=== PATIENT | female | born 1960 | race Caucasian/White ===

== ENCOUNTER 2024-12-23 16:43 | Emergency (ER) | payer BC ==
[~2024-12-23] VITALS: Ht 175.3 cm; Wt 81.6 kg
[2024-12-23] MEDS ORDERED: ONDANSETRON HCL/PF 4 MG/2 ML VIAL ONE (17:13)
[2024-12-23] MEDS: ONDANSETRON HCL/PF 4 MG/2 ML VIAL IV ONE (17:33)
[2024-12-23 17:40] LABS: PLATELET COUNT (AUTO) 328 K/uL (150-450); RED BLOOD CELL COUNT(AUTO) 4.46 MIL/uL (4.0-5.2); RED CELL DISTRIBUTION WIDTH 13.2 % (11.5-15.0); WHITE BLOOD COUNT (AUTO) 6.8 K/uL (4.3-11.0)
[2024-12-23 17:45] LABS: APPEARANCE,URINE CLEAR (CLEAR); BLOOD, URINE NEGATIVE Ery/uL (NEGATIVE); LEUKOCYTE ESTERASE ,URINE 1+ (NEGATIVE); NITRITE, URINE POSITIVE (NEGATIVE); UGLUCOSE NEGATIVE (NEGATIVE)
[2024-12-23] MEDS ORDERED: MAG HYDROX/AL HYDROX/SIMETH 30 ML UDC ONE (17:46)
[2024-12-23] MEDS ORDERED: FAMOTIDINE/PF INJ 20 MG/2 ML VIAL IV ONE (17:46)
[2024-12-23] MEDS: FAMOTIDINE/PF INJ 20 MG/2 ML VIAL IV ONE (17:49)
[2024-12-23] MEDS: IV NS 0.9% 1,000 ML BAG IV ONE (17:49)
[2024-12-23] MEDS: MAG HYDROX/AL HYDROX/SIMETH 30 ML UDC PO ONE (17:50)
[2024-12-23 17:53] LABS: CALCIUM, SERUM 9.8 mg/dL (8.5-10.1); CREATININE 0.8 mg/dL (0.6-1.3); INR 0.97 (0.91-1.10); SODIUM SERUM 142 mmol/L (136-145); UREA NITROGEN, BLOOD 20 mg/dL (7-18)
[2024-12-23 17:56] LABS: SQUAMOUS EPITHELIAL CELL,UR Moderate /HPF (None Seen)
[2024-12-23 17:58] LABS: ASPARTATE AMINOTRANSFERASE 28 U/L (15-37); TOTAL PROTEIN, SERUM 8.2 g/dL (6.4-8.2)
[2024-12-23 17:58] LABS: ADD URINE CULTURE YES
[2024-12-23] MEDS ORDERED: IOHEXOL-350 100 ML VIAL IV ONE (18:03)
[2024-12-23] MEDS ORDERED: IV NS 0.9% 250 ML IV ONE (18:03)
[2024-12-23 18:09] LABS: OCCULT BLOOD STOOL NEGATIVE (NEGATIVE)
[2024-12-23] MEDS ORDERED: ONDA4TAB5 PO (19:39)
[2024-12-23] MEDS ORDERED: SUCR1TAB PO (19:39)
[2024-12-23 19:47] VITALS: BP 122/64; TEMP 98.3; O2SAT 98
[2024-12-23] MEDS ORDERED: CEPH500C2 PO (23:25)
== END 2024-12-23 19:47 | disposition home or self-care (01) ==
LOC: ER 16:52
DX: R10.13 Epigastric pain (principal); R11.10 Vomiting, unspecified; Z86.19 Personal history of other infectious and parasitic diseases; Z88.2 Allergy status to sulfonamides
CPT/HCPCS: 99285; 74174; 96374; 96361; 96375; 93005; 85025; 80048; 87086; 83690; 80076; 82272; 81001; 36415; 84484; 85730; J1308; J2405; J7030; J7050; Q9967